=== PATIENT | male | born 1950 | race Caucasian/White ===

== ENCOUNTER 2020-11-22 10:11 | Outpatient (REF) | payer MEDICARE, SELFPAY | END 2020-11-22 10:12 | disposition home or self-care (01) | LOC: HO.LAB 10:11 | PROVIDERS: Visit Provider Internal Medicine | DX: Z20.822 Contact with and (suspected) exposure to COVID-19 (principal) | CPT/HCPCS: 36415; C9803; U0003 ==

== ENCOUNTER 2025-07-04 10:23 | Outpatient (AMB) | payer MEDICARE, SELFPAY ==
--- OUTSIDE RECORDS SUMMARY | 2025-07-04 11:31 | XMS_ITS | Clinical Summary ---
Author Organization [facility] Address [address] [address] Phone Care Team Providers Care Customer Service Driver Name Role Phone Pcp, Unknown Primary Care Provider Unavailabl e Social History Tobacco Use Types Packs/Day Years Used Date Smoking Tobacco: Never Assessed Education Answer Date Recorded Are you interested in more education? Not on ashok e 03/07/2023 Are you concerned about learning? Not on file 03/07/2023 No 03/07/2023 No 03/07/2023 Digital Access Answer Date Recorded No 04/07/2023 No 04/07/2023 No 04/07/2023 Reliable internet access at home? Not on file 04/07/2023 Device with a working camera? Not on file Sex and Gender Information Value Date Recorded Sex Assigned at Not on file Legal Sex Male 10:04 PM EDT Gender Identity Not on file Sexual Orientation Not on file Plan of Treatment Health Maintenance Due Date Last Done Comments Adult Td,Tdap Booster 1949 LIPID PANEL 1949 DEPRESSION SCREENING 1961 SMOKING Hx and SMOKELESS TOBACCO SCREENING 1962 HEPATITIS C SCREENING 1967 COLOGUARD 1994 COLONOSCOPY 1994 COLORECTAL CANCER SCREENING 1994 FIT TEST 1994 FOBT 1994 SIGMOIDOSCOPY 1994 VIRTUAL COLONOSCOPY 1994 PNEUMOCOCCAL VACCINES (50+ years) (1 of 1 - PCV) 1999 COVID-19 VACCINE ( - 2023-2 5 season) 2024 2021, 02/22/2021, 01/24/2021 RSV VACCINE (1 - 1-dose 75+ series) 2024 ZOSTER VACCINES Completed 11/22/2020, 09/22/2020 HEPATITIS A VACCINES Aged Out No long er eligible based on patient's age to complete this topic HIB VACCINES Aged Out No longer eligi ble based on patient's age to complete this topic MENINGOCOCCAL VACCINES (ACWY) Aged Out No longer eligible based on patient's age to complete this topic MENINGOCOCCAL VACCINES (B) Aged Out N o longer eligible based on patient's age to complete this topic Medical Devices Not on file Insurance MEDICARE PART A & B MEDICARE PART A & B MEDICARE PART A & B MEDICARE PART A & B MEDICARE PART A & B MEDICARE PART A & B MEDICARE PART A & B MEDICARE PART A & B MEDICARE PART A & B Care Teams Customer Service Driver Relationship Specialty Start Date End Date Pcp, Unknown PCP - General 04/17/22 Additional Source Comments The information contained in this document represents components of the legal health record. It is not the complete legal health record.[facility]
== END 2025-07-04 10:36 | disposition home or self-care (01) ==
LOC: HO.HMGAL 10:23
PROVIDERS: Visit Provider Registered Nurse Emergency
DX: J30.89 Other allergic rhinitis (principal)
CPT/HCPCS: 95117; 95165

== ENCOUNTER 2025-07-18 10:33 | Outpatient (AMB) | payer MEDICARE, SELFPAY ==
--- OUTSIDE RECORDS SUMMARY | 2025-07-18 12:43 | XMS_ITS | Encounter Summary ---
Author Organization [facility] Address [address] [place] [phone] Phone Care Team Providers Care Wire Turning Machine Operator Name Role Phone Pcp, Unknown Primary Care Provider Unavailabl e Reason for Referral * MRI/CAT Scan - Closed Specialty Diagnoses / Procedures Referred By Contac t Referred To Contact Radiology Diagnoses Lung nodule Procedures NM PET CT Skull Base to Mid Thighs Kel Quiñones MD [address] [address] Phone: tel: fax: mailto:[email or web address] Referral ID Status Reason Start Date Expiration Date Visits Re quested Visits Authorized [id number] Closed 04/17/2022 04/17/2023 1 1 Encounter Details Date Type Department Care Team (Latest Contact Info) Description 04/17/2022 Transcribe Orders [facility] Department [address] [place] [id number] Kel Quiñones MD [address] [phone] [email or web address] Lung nodule (Primary Dx) Social History Tobacco Use Types Packs/Day Years Used Date Smoking Tobacco: Never Assessed Sex and Gender Information Value Date Recorded Sex Assigned at Not on file Legal Sex Male 10:04 PM EDT Gender Identity Not on file Sexual Orientation Not on file documented as of this encounter Plan of Treatment Not on file documented as of this encounter Results * NM PET CT Skull Base to Mid Thighs (04/18/2022 10:10 AM EDT) Anatomical Region Laterality Modality Positron Emissio n Tomography (PET) Narrative 04/18/2022 9:06 AM EDT [facility] Garrett Quiñones MD IMG NM PET Final Re sult documented in this encounter Visit Diagnoses Diagnosis Lung nodule- Primary Other diseases of lung, not elsewhere classified Lung nodule Other diseases of lung, not elsewhere classified documented in this encounter Care Teams Wire Turning Machine Operator Relationship Specialty Start Date End Date Pcp, Unknown PCP - General 04/17/22 documented as of this encounter Additional Source Comments The information contained in this document represents components of the legal health record. It is not the complete legal health record.[facility]
--- OUTSIDE RECORDS SUMMARY | 2025-07-18 12:43 | XMS_ITS | Clinical Summary ---
Author Organization [facility] Address [address] [address] Phone Care Team Providers Care Manager Qa Name Role Phone Pcp, Unknown Primary Care [...] MEDICARE PART A & B Care Teams Manager Qa Relationship Specialty Start Date End Date Pcp, Unknown PCP - General 04/17/22 Additional Source Comments The information contained in this document represents components of the legal health record. It is not the complete legal health record.[facility]
== END 2025-07-18 10:48 | disposition home or self-care (01) ==
LOC: HO.HMGAL 10:33
PROVIDERS: Visit Provider Registered Nurse Emergency
DX: J30.89 Other allergic rhinitis (principal)
CPT/HCPCS: 95117; 95165

== ENCOUNTER 2025-08-15 11:25 | Outpatient (AMB) | payer MEDICARE, OTHER, SELFPAY ==
--- OUTSIDE RECORDS SUMMARY | 2025-08-15 14:04 | XMS_ITS | Clinical Summary ---
Author Organization [facility] Address [address] [address] Phone Care Team Providers Care Tower Dragline Operator Name Role Phone Pcp, Unknown Primary [...] MEDICARE PART A & B Care Teams Tower Dragline Operator Relationship Specialty Start Date End Date Pcp, Unknown PCP - General 04/17/22 Additional Source Comments The information contained in this document represents components of the legal health record. It is not the complete legal health record.[facility]
--- OUTSIDE RECORDS SUMMARY | 2025-08-15 14:04 | XMS_ITS | Encounter Summary ---
Author Organization [facility] Address [address] [place] [phone] Phone Care Team Providers Care Restaurant And Bar Manager Name Role Phone Pcp, Unknown Primary Care Provider Unavailabl e Reason for Referral * MRI/CAT Scan - Closed Specialty Diagnoses / Procedures Referred By Contac t Referred To Contact Radiology Diagnoses Lung nodule Procedures NM PET CT Skull Base to Mid Thighs Kel Quiñones MD [address] [address] Phone: tel: fax: mailto:[email or web address] Referral ID Status Reason Start Date Expiration Date Visits Re quested Visits Authorized [id number] Closed 04/17/2022 04/17/2023 1 1 Encounter Details Date Type Department Care Team (Latest Contact Info) Description 04/17/2022 Transcribe Orders [facility] Department [address] [place] [id number] Kel Quiñones MD [address] [phone] [email or web address] Lung nodule (Primary Dx) Social History Tobacco [...] Narrative 04/18/2022 9:06 AM EDT [facility] PETCT [facility] Garrett Quiñones MD IMG NM PET Final Re sult documented in this encounter Visit Diagnoses Diagnosis Lung nodule- Primary Other diseases of lung, not elsewhere classified Lung nodule Other diseases of lung, not elsewhere classified documented in this encounter Care Teams Restaurant And Bar Manager Relationship Specialty Start Date End Date Pcp, Unknown PCP - General 04/17/22 documented as of this encounter Additional Source Comments The information contained in this document represents components of the legal health record. It is not the complete legal health record.[facility]
== END 2025-08-15 11:34 | disposition home or self-care (01) ==
LOC: HO.HMGAL 11:25
PROVIDERS: PCP Internal Medicine; Visit Provider Registered Nurse Emergency
DX: J30.89 Other allergic rhinitis (principal)
CPT/HCPCS: 95117; 95165

== ENCOUNTER 2025-08-31 11:08 | Outpatient (AMB) | payer MEDICARE, OTHER, SELFPAY ==
--- OUTSIDE RECORDS SUMMARY | 2025-08-31 15:04 | XMS_ITS | Clinical Summary ---
Author Organization [facility] Address [address] [address] Phone Care Team Providers Care Butter Wrapper Name Role Phone Pcp, Unknown Primary Care [...] years) (1 of 1 - PCV) 1999 RSV VACCINE (1 - 1-dose 75+ series) 2024 INFLUENZA VACCINE (#1) 2025 08/18/2020 COVID-19 VACCINE (4 - 2024-2 6 season) 2025 2021, 02/22/2021, 01/24/2021 ZOSTER VACCINES Completed 11/22/2020, 09/22/2020 HEPATITIS A [...] MEDICARE PART A & B Care Teams Butter Wrapper Relationship Specialty Start Date End Date Pcp, Unknown PCP - General 04/17/22 Additional Source Comments The information contained in this document represents components of the legal health record. It is not the complete legal health record.[facility]
--- OUTSIDE RECORDS SUMMARY | 2025-08-31 15:04 | XMS_ITS | Encounter Summary ---
Author Organization [facility] Address [address] [place] [phone] Phone Care Team Providers Care Associate Professor Of Criminal Justice Name Role Phone Pcp, Unknown Primary Care Provider Unavailabl e Reason for Referral * MRI/CAT Scan - Closed Specialty Diagnoses / Procedures Referred By Contac t Referred To Contact Radiology Diagnoses Lung nodule Procedures NM PET CT Skull Base to Mid Thighs Kel Quiñones MD [address] [address] Phone: tel: fax: mailto:[email or web address] Referral ID Status Reason Start Date Expiration Date Visits Re quested Visits Authorized [id number] Closed 04/17/2022 04/17/2023 1 1 Encounter Details Date Type Department Care Team (Latest Contact Info) Description 04/17/2022 Transcribe Orders [facility] Department [address] [place] [phone] Kel Quiñones MD [address] [phone] [email or web address] Lung nodule (Primary Dx) Social History Tobacco [...] Narrative 04/18/2022 9:06 AM EDT [facility] PETCT [facility] Garrett Quiñones MD IMG NM PET Final Re sult documented in this encounter Visit Diagnoses Diagnosis Lung nodule- Primary Other diseases of lung, not elsewhere classified Lung nodule Other diseases of lung, not elsewhere classified documented in this encounter Care Teams Associate Professor Of Criminal Justice Relationship Specialty Start Date End Date Pcp, Unknown PCP - General 04/17/22 documented as of this encounter Additional Source Comments The information contained in this document represents components of the legal health record. It is not the complete legal health record.[facility]
== END 2025-08-31 11:10 | disposition home or self-care (01) ==
LOC: HO.HMGAL 11:08
PROVIDERS: PCP Internal Medicine; Visit Provider Registered Nurse Emergency
DX: J30.89 Other allergic rhinitis (principal)
CPT/HCPCS: 95117; 95165

== ENCOUNTER 2025-09-12 11:02 | Outpatient (AMB) | payer MEDICARE, OTHER, SELFPAY ==
--- OUTSIDE RECORDS SUMMARY | 2025-09-12 13:54 | XMS_ITS | Encounter Summary ---
Author Organization [facility] Address [address] [place] [phone] Phone Care Team Providers Care Spinner Box Name Role Phone Pcp, Unknown Primary Care Provider Unavailabl e Reason for Referral * MRI/CAT Scan - Closed Specialty Diagnoses / Procedures Referred By Contac t Referred To Contact Radiology Diagnoses Lung nodule Procedures NM PET CT Skull Base to Mid Thighs Kel Quiñones MD [address] [address] Phone: tel: fax: mailto:[email or web address] Referral ID Status Reason Start Date Expiration Date Visits Re quested Visits Authorized [id number] Closed 04/17/2022 04/17/2023 1 1 Encounter Details Date Type Department Care Team (Latest Contact Info) Description 04/17/2022 Transcribe Orders [facility] Department [address] [place] [phone] Kel Quiñones MD [address] [phone] [email or web address] Lung nodule (Primary Dx) Social History Tobacco [...] Narrative 04/18/2022 9:06 AM EDT [facility] PETCT [facility] Garrett Quiñones MD IMG NM PET Final Re sult documented in this encounter Visit Diagnoses Diagnosis Lung nodule- Primary Other diseases of lung, not elsewhere classified Lung nodule Other diseases of lung, not elsewhere classified documented in this encounter Care Teams Spinner Box Relationship Specialty Start Date End Date Pcp, Unknown PCP - General 04/17/22 documented as of this encounter Additional Source Comments The information contained in this document represents components of the legal health record. It is not the complete legal health record.[facility]
--- OUTSIDE RECORDS SUMMARY | 2025-09-12 13:54 | XMS_ITS | Clinical Summary ---
Author Organization [facility] Address [address] [address] Phone Care Team Providers Care Tipple Mechanic Name Role Phone Pcp, Unknown Primary Care [...] MEDICARE PART A & B Care Teams Tipple Mechanic Relationship Specialty Start Date End Date Pcp, Unknown PCP - General 04/17/22 Additional Source Comments The information contained in this document represents components of the legal health record. It is not the complete legal health record.[facility]
== END 2025-09-12 11:04 | disposition home or self-care (01) ==
LOC: HO.HMGAL 11:02
PROVIDERS: PCP Internal Medicine; Visit Provider Registered Nurse Emergency
DX: J30.89 Other allergic rhinitis (principal)
CPT/HCPCS: 95117; 95165

== ENCOUNTER 2025-09-26 11:18 | Outpatient (AMB) | payer MEDICARE, OTHER, SELFPAY | END 2025-09-26 11:19 | disposition home or self-care (01) | LOC: HO.HMGAL 11:18 | PROVIDERS: PCP Internal Medicine; Visit Provider Registered Nurse Emergency | DX: J30.89 Other allergic rhinitis (principal) | CPT/HCPCS: 95117; 95165 ==

== ENCOUNTER 2025-10-10 10:53 | Outpatient (AMB) | payer MEDICARE, OTHER, SELFPAY ==
--- OUTSIDE RECORDS SUMMARY | 2025-10-10 14:04 | XMS_ITS | Encounter Summary ---
Author Organization [facility] Address [address] [place] [phone] Phone Care Team Providers Care Blower Operator Name Role Phone Pcp, Unknown Primary Care Provider Unavailabl e Reason for Referral * MRI/CAT Scan - Closed Specialty Diagnoses / Procedures Referred By Contac t Referred To Contact Radiology Diagnoses Lung nodule Procedures NM PET CT Skull Base to Mid Thighs Kel Quiñones MD [address] [address] Phone: tel: fax: mailto:[email or web address] Referral ID Status Reason Start Date Expiration Date Visits Re quested Visits Authorized [id number] Closed 04/17/2022 04/17/2023 1 1 Encounter Details Date Type Department Care Team (Latest Contact Info) Description 04/17/2022 Transcribe Orders [facility] Department [address] [place] [phone] Kel Quiñones MD [address] [phone] [email or web address] Lung nodule (Primary Dx) Social History Tobacco [...] Narrative 04/18/2022 9:06 AM EDT [facility] PETCT [facility] Garrett Quiñones MD IMG NM PET Final Re sult documented in this encounter Visit Diagnoses Diagnosis Lung nodule- Primary Other diseases of lung, not elsewhere classified Lung nodule Other diseases of lung, not elsewhere classified documented in this encounter Care Teams Blower Operator Relationship Specialty Start Date End Date Pcp, Unknown PCP - General 04/17/22 documented as of this encounter Additional Source Comments The information contained in this document represents components of the legal health record. It is not the complete legal health record.[facility]
--- OUTSIDE RECORDS SUMMARY | 2025-10-10 14:04 | XMS_ITS | Clinical Summary ---
Author Organization [facility] Address [address] [address] Phone Care Team Providers Care Inventory Clerk Name Role Phone Pcp, Unknown Primary Care [...] TOBACCO SCREENING 1962 HEPATITIS C SCREENING 1967 PNEUMOCOCCAL VACCINES (50+ years) (1 of 1 - PCV) 1999 RSV VACCINE (1 - 1-dose 75+ series) 2024 INFLUENZA VACCINE (#1) 2025 08/18/2020 COVID-19 VACCINE ( - 2024-2 6 season) 2025 2021, 02/22/2021, [...] MEDICARE PART A & B Care Teams Inventory Clerk Relationship Specialty Start Date End Date Pcp, Unknown PCP - General 04/17/22 Additional Source Comments The information contained in this document represents components of the legal health record. It is not the complete legal health record.[facility]
== END 2025-10-10 10:54 | disposition home or self-care (01) ==
LOC: HO.HMGAL 10:53
PROVIDERS: PCP Internal Medicine; Visit Provider Registered Nurse Emergency
DX: J30.89 Other allergic rhinitis (principal)
CPT/HCPCS: 95117; 95165

== ENCOUNTER 2025-10-26 10:29 | Outpatient (AMB) | payer MEDICARE, OTHER, SELFPAY ==
--- OUTSIDE RECORDS SUMMARY | 2025-10-26 13:02 | XMS_ITS | Clinical Summary ---
Author Organization [facility] Address [address] [address] Phone Care Team Providers Care Glaze Handler Name Role Phone Pcp, Unknown Primary Care [...] MEDICARE PART A & B Care Teams Glaze Handler Relationship Specialty Start Date End Date Pcp, Unknown PCP - General 04/17/22 Additional Source Comments The information contained in this document represents components of the legal health record. It is not the complete legal health record.[facility]
--- OUTSIDE RECORDS SUMMARY | 2025-10-26 13:02 | XMS_ITS | Encounter Summary ---
Author Organization [facility] Address [address] [facility] [address] [place], [place] [phone] Phone Care Team Providers Care Carbon Electrodes Supervisor Name Role Phone Pcp, Unknown Primary Care Provider Unavailabl e Reason for Referral * MRI/CAT Scan - Closed Specialty Diagnoses / Procedures Referred By Contac t Referred To Contact Radiology Diagnoses Lung nodule Procedures NM PET CT Skull Base to Mid Thighs Kel Quiñones MD [address] [address] Phone: tel: fax: mailto:[email or web address] Referral ID Status Reason Start Date Expiration Date Visits Re quested Visits Authorized [id number] Closed 04/17/2022 04/17/2023 1 1 Encounter Details Date Type Department Care Team (Latest Contact Info) Description 04/17/2022 Transcribe Orders [facility] Department [address] [place] [id number] Kel Quiñones MD [address] [phone] [email or web address] Lung nodule (Primary Dx) Social History Tobacco [...] Narrative 04/18/2022 9:06 AM EDT [facility] PETCT [facility] Garrett Quiñones MD IMG NM PET Final Re sult documented in this encounter Visit Diagnoses Diagnosis Lung nodule- Primary Other diseases of lung, not elsewhere classified Lung nodule Other diseases of lung, not elsewhere classified documented in this encounter Care Teams Carbon Electrodes Supervisor Relationship Specialty Start Date End Date Pcp, Unknown PCP - General 04/17/22 documented as of this encounter Additional Source Comments The information contained in this document represents components of the legal health record. It is not the complete legal health record.[facility]
== END 2025-10-26 10:30 | disposition home or self-care (01) ==
LOC: HO.HMGAL 10:29
PROVIDERS: PCP Internal Medicine; Visit Provider Registered Nurse Emergency
DX: J30.89 Other allergic rhinitis (principal)
CPT/HCPCS: 95117; 95165